=== PATIENT | female | born 1990 | race Caucasian/White ===

== ENCOUNTER 2020-04-12 14:02 | Outpatient (CLI) | payer OTHER, SELFPAY ==
--- NOTE | ~2020-04-12 | US_ITS ---
US right upper quadrant DATE: 04/12/2020 14:32 INDICATION: Chronic hepatitis C TECHNIQUE: Real-time imaging of liver, pancreas, gallbladder areas COMPARISON: None FINDINGS: No hepatic or pancreatic space-occupying mass lesion is detected. No gallstones are evident . Gallbladder wall thickness is within normal range. Normal hepatopedal portal venous flow direction. The common bile duct measures 3.2 mm, normal. IMPRESSION: No significant abnormality Reviewed, dictated and finalized at [facility]. Reviewed, dictated and finalized at [facility]. [employer] OPERATOR IMPRESSION: No significant abnormality
== END 2020-04-12 14:03 | disposition home or self-care (01) ==
PROVIDERS: Visit Provider Internal Medicine
DX: F11.10 Opioid abuse, uncomplicated (principal); K73.9 Chronic hepatitis, unspecified
CPT/HCPCS: 76705

== ENCOUNTER 2021-11-13 16:23 | Emergency (ER) | payer OTHER, SELFPAY ==
--- NOTE | ~2021-11-13 | XR_ITS ---
XR chest 1V DATE: 11/13/2021 18:13 INDICATION: Cough for 2 days. Smoker. TECHNIQUE: Portable upright AP chest on 11/13/2021 at 1807 hours COMPARISON: 04/03/2013 PA and lateral views FINDINGS: Normal heart size. No hilar or mediastinal enlargement. No pulmonary infiltrate or consolid ation, pleural effusion or pulmonary vascular congestion or pneumothorax. Mild thoracic and lumbar scoliosis IMPRESSION: No active cardiopulmonary disease Reviewed, dictated and finalized at [facility].
[2021-11-13 16:53] VITALS: BP 125/89; PULSE 80; RESP 18; TEMP 36.9; O2SAT 100
[2021-11-13 17:59] VITALS: BP 119/91; PULSE 83; RESP 14; TEMP 37.1; O2SAT 98
[2021-11-13 18:18] VITALS: O2SAT 98
[2021-11-13 18:23] LABS: Basophils Absolute Auto 0.1 K/mm3 (0.0-0.1); Basophils Percent Auto 0.6 % (0.2-1.2); Eosinophils Absolute Auto 0.4 K/mm3 (0-0.3); Eosinophils Percent Auto 4.2 % (0-4.4); Hematocrit 40.8 % (37.0-47.0); Hemoglobin 13.3 g/dL (12.0-15.0); Immature Granulocyte Absolute 0.04 K/mm3 (0.00-0.031); Immature Granulocyte Percent A 0.4 % (0-0.5); Lymphocytes Percent Auto 16.7 % (18.3-44.2); Mean Corpuscular HGB Conc 32.6 g/dl (32-36); Mean Corpuscular Hemoglobin 28.7 pg (26-34); Mean Corpuscular Volume 88.1 fl (80-100); Monocytes Absolute Auto 0.7 K/mm3 (0.1-0.6); Monocytes Percent Auto 6.4 % (2.6-8.5); Neutrophils Absolute Auto 7.3 K/mm3 (1.3-6.7); Neutrophils Percent Auto 71.7 % (45.5-73.1); Platelet Count Result 272 k/mm3 (150-375); Red Blood Count 4.63 M/mm3 (4.2-5.4); Red Cell Distribution Width 14.6 % (11.5-14.5); White Blood Count 10.2 K/mm3 (4.5-10.0)
[2021-11-13 18:33] LABS: Anion Gap 12 mmol/L (8-16); Blood Urea Nitrogen 10 mg/dL (7-17); Calcium 9.7 mg/dL (8.4-10.2); Carbon Dioxide 24 mmol/L (22-30); Chloride 103 mmol/L (98-107); Estimated CRCL calculation 96 ml/min; Estimated Glomerular Filt Rate > 60; Glucose 100 mg/dL (65-110); Potassium 4.3 mmol/L (3.4-5.0); Sodium 139 mmol/L (137-145)
[2021-11-13 18:59] LABS: SARS-CoV-2 RNA PCR Negative
--- NOTE | 2021-11-13 21:07 | ED.GENADULT ---
HPI - General Adult General Chief complaint: Upper Respiratory Infection Stated complaint: SOB Time Seen by Provider: 11/13/21 17:59 History of Present Illness HPI narrative: 31-year-old female presenting to the emergency department for evaluation of cough nasal congestion and loss of smell and intermittent shortness of breath of the last 3 days. Related Data Allergies Allergy/AdvReac Type Severity Reaction Status Date / Time Sulfa (Sulfonamide Allergy Severe SWELLING Verified 11/13/21 16:56 Antibiotics) Review of Systems Review of Systems: CONSTITUTIONAL: see HPI. EYES: Denies visual changes, redness, or discharge. ENT: Denies rhinorrhea, congestion, sore throat, or otalgia. CARDIOVASCULAR: Denies chest pain, palpitations, or edema. RESPIRATORY: see HPI GASTROINTESTINAL: Denies abdominal pain, nausea, vomiting, or diarrhea. GENITOURINARY: Denies dysuria or hematuria. SKIN: Denies rash or itching. MUSCULOSKELETAL: Denies back pain, joint pain, or myalgia. NEUROLOGIC: Denies headache, numbness, or weakness. Exam Narrative: APPEARANCE: Well appearing, no pain, no distress, well-nourished. HEAD: normocephalic, atraumatic. EYES: PERRLA/EOMI, conjunctivae clear. NOSE: Normal no drainage EARS:TMS clear with good light reflex. THROAT: Pharynx clear, no exudate. NECK: Supple. No adenopathy, no masses. RESPIRATORY: Airway patent, respirations nonlabored. Clear to auscultation bilaterally, no rales, rhonchi, wheezing. CARDIOVASCULAR: Regular rate and rhythm without murmurs rubs or gallops. ABDOMINAL: Soft, nontender, nondistended, normal bowel sounds MUSCULOSKELETAL: Moves all extremities. Strength/ROM intact, No edema, No calf tenderness. NEURO: Alert. Cranial nerves II through XII intact. Grossly intact SKIN: Warm, dry. Normal Color Course Course Emergency Course: Patient was treated for a possible atypical pneumonia. Patient was updated on the results of her work-up. Patient was comfortable with the plan for discharge and follow-up. Patient was educated on reasons to return to the emergency department. All questions concerns were addressed. Patient was well-appearing at time of discharge from the emergency department Vital Signs Vital signs: Vital Signs Temperature 98.5 F 11/13/21 16:53 Pulse Rate 80 11/13/21 16:53 Respiratory Rate 18 11/13/21 16:53 Blood Pressure 125/89 11/13/21 16:53 Pulse Oximetry 100 11/13/21 16:53 Temperature 98.8 F 11/13/21 17:59 Pulse Rate 68 11/13/21 21:15 Respiratory Rate 20 11/13/21 21:15 Blood Pressure 128/74 11/13/21 21:15 Pulse Oximetry 99 11/13/21 21:15 Oxygen Delivery Room Air 11/13/21 18:18 Medical Decision Making Vital Signs Vital Signs: Vital Signs Temperature 98.5 F 11/13/21 16:53 Pulse Rate 80 11/13/21 16:53 Respiratory Rate 18 11/13/21 16:53 Blood Pressure 125/89 11/13/21 16:53 Pulse Oximetry 100 11/13/21 16:53 Temperature 98.8 F 11/13/21 17:59 Pulse Rate 68 11/13/21 21:15 Respiratory Rate 11/13/21 21:15 Blood Pressure 128/74 11/13/21 21:15 Pulse Oximetry 99 11/13/21 21:15 Oxygen Delivery Room Air 11/13/21 18:18 Lab Data Result diagrams: 11/13/21 18:16 11/13/21 18:15 Labs: Lab Results 11/13/21 11/13/21 11/13/21 Range/Units 18:15 18:16 18:16 WBC 10.2 H (4.5-10.0) K/mm3 RBC 4.63 (4.2-5.4) M/mm3 Hgb 13.3 (12.0-15.0) g/dL Hct 40.8 (37.0-47.0) % MCV 88.1 (80-100) fl MCH 28.7 (26-34) pg MCHC 32.6 (32-36) g/dl RDW 14.6 H (11.5-14.5) % Plt Count 272 (150-375) k/mm3 MPV 10.0 (7.4-10.4) fl Immature Gran % (Auto) 0.4 (0-0.5) % Neut % (Auto) 71.7 (45.5-73.1) % Lymph % (Auto) 16.7 L (18.3-44.2) % [place] % (Auto) 6.4 (2.6-8.5) % Eos % (Auto) 4.2 (0-4.4) % Baso % (Auto) 0.6 (0.2-1.2) % Lymph # (Auto) 1.70 (0.9-3.2) K/mm3 [place] # (Auto) 0.7 H (0.1-0.6) K/mm3 Eos #
[2021-11-13] MEDS: AZITHROMYCIN 250 MG TABLET 500 MG PO (21:12)
[2021-11-13 21:15] VITALS: BP 128/74; PULSE 68; RESP 20; O2SAT 99
== END 2021-11-13 21:10 | disposition home or self-care (01) ==
PROVIDERS: Emergency Medicine; Emergency Provider Emergency Medicine
DX: J06.9 Acute upper respiratory infection, unspecified (principal); Z20.822 Contact with and (suspected) exposure to COVID-19
CPT/HCPCS: 36415; 71045; 80048; 85025; 99283; A9270; C9803; U0003; U0005